=== PATIENT | female | born 1990 | race American Indian/Alaskan Native ===

== ENCOUNTER 2018-06-24 15:45 | Inpatient (IN) | payer OTHER, MEDICAID ==
[2018-06-24] MEDS ORDERED: Lactated Ringer's 1,000 ML IV SCH (16:45)
[2018-06-24 17:29] LABS: SQUAMOUS EPITHIAL 4 /hpf (0-5); URINE BACTERIA RARE (<OCC); URINE BILIRUBIN NEGATIVE (NEGATIVE); URINE BLOOD NEGATIVE (NEGATIVE); URINE CLARITY Clear (Clear); URINE COLOR Yellow (YELLOW); URINE GLUCOSE (UA) NORMAL (Normal); URINE LEUKOCYTE ESTERASE NEG Leu/uL (Negative); URINE PROTEIN NEGATIVE (NEGATIVE); URINE UROBILINOGEN NORMAL mg/dL (0.2-1.0)
[2018-06-24 17:34] LABS: BASO % 0.4 % (0.0-2.0); EOS # 0.4 K/uL (0.0-0.7); EOS % 4.5 % (0.0-4.0); LYMPH # 1.4 K/uL (1.0-4.3); LYMPH % 16.5 % (20.0-40.0); MEAN CELL VOLUME 89.6 fL (81.0-99.0); MEAN CORPUSCULAR HEMOGLOBIN 30.3 pg (27.0-31.0); MEAN CORPUSCULAR HGB CONC 33.8 g/dL (33.0-37.0); MEAN PLATELET VOLUME 8.9 fL (7.2-11.7); MONO # 0.8 K/uL (0.0-0.8); MONO % 10.2 % (0.0-10.0); NEUT # 5.7 K/uL (1.8-7.0); NEUT % 68.4 % (50.0-75.0); NRBC % 0.1 % (0.0-2.0); RBC 3.62 Mil/uL (3.80-5.20); RED CELL DISTRIBUTION WIDTH 14.9 % (11.5-14.5); WHITE BLOOD COUNT 8.3 K/uL (4.8-10.8)
[2018-06-24] MEDS ORDERED: DiphenhydrAMINE 50 mg/ml Inj IVP ONE (18:00)
[2018-06-24] MEDS ORDERED: Oxytocin 30 UNIT 30 UNITS/500 ML BAG IV SCH (18:00)
[2018-06-24] MEDS ORDERED: Nalbuphine HCL 10 mg/ml Ampule IVP ONE (18:00)
[2018-06-24 18:01] LABS: ALBUMIN 3.3 g/dL (3.5-5.0); ALT/SGPT 21 U/L (9-52); AST/SGOT 28 U/L (14-36); BLOOD UREA NITROGEN 8 mg/dL (7-17); CALCIUM 9.5 mg/dl (8.6-10.4); GFR NON-AFRICAN AMERICAN > 60
[2018-06-24 18:29] LABS: HEPATITIS B SURFACE AG Negative (NEGATIVE)
[2018-06-24] MEDS ORDERED: Oxytocin 30 UNIT 30 UNITS/500 ML BAG IV ONE (19:12)
[2018-06-24] MEDS ORDERED: Benzocaine/Menthol 20%-0.5% Topical Spray (60 ml) TOP PRN (19:46)
--- NOTE | 2018-06-24 21:34 | OBHP ---
Datetime: 06/24/2018 17:01 IP Adm Impression: Term, intrauterine IP Admit Plan: Admit to unit Admit Comment, IP Provider: Patient is a 28 year old , LMP (10/03/17), with JUNI (06/27/18) by [facility], who presents to [facility] with complaints of contractions that started at 7am this morning with contrac tions being 15 minutes apart, and 3-4 minutes this afternoon. Patient denies any vaginal bleeding, l eakage of fluid and recent sexual activity. 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 1. Admit to unit 2. CEFM and TOCO 3. Admission labs and orders 4. SVE 5. LR @ 125mls/hr 6. records reviewed 7. Nubain/ Benadryl given as per Dr. Grady orders 8. All plans discussed with Dr. Grady agree wth avoe pt seen and exaiend admitted for labr pain managment cnt toco and efm Extremities - PN: Normal Abdomen - PN: Normal Lungs - PN: Normal Heart - PN: Normal HEENT - PN: Normal General - PN: Normal FHR - Baseline A Provider: 140 Membranes, Provider: Intact EGA AdmitDate IP: 37.5 Vital Signs Provider: Reviewed; Within Normal Limits IP Chief Complaint: Uterine contractions NICHD Variability Prov Fetus A: Moderate 6-25bpm NICHD Accel Fetus A IP Provider: [id number] (Annotations: Data stored by CPN on behalf of user) Dilatation, Provider: 4 Effacement, Provider: 80 Station, Provider: -2
[2018-06-24] MEDS: Oxycodone/Acetaminophen 5/325 mg Tab PO PRN (23:09)
[2018-06-25] MEDS: Oxycodone/Acetaminophen 5/325 mg Tab PO PRN ×3 (08:15→17:04)
[2018-06-25 08:32] LABS: BASO # 0.1 K/uL (0.0-0.2); BASO % 0.6 % (0.0-2.0); EOS # 0.4 K/uL (0.0-0.7); EOS % 4.4 % (0.0-4.0); HEMOGLOBIN 11.1 g/dL (11.0-16.0); LYMPH # 1.8 K/uL (1.0-4.3); LYMPH % 18.6 % (20.0-40.0); MEAN CELL VOLUME 89.9 fL (81.0-99.0); MEAN CORPUSCULAR HEMOGLOBIN 29.6 pg (27.0-31.0); MEAN PLATELET VOLUME 8.6 fL (7.2-11.7); MONO # 0.8 K/uL (0.0-0.8); MONO % 8.4 % (0.0-10.0); NEUT # 6.5 K/uL (1.8-7.0); NRBC % 0.1 % (0.0-2.0); RBC 3.76 Mil/uL (3.80-5.20); RED CELL DISTRIBUTION WIDTH 14.8 % (11.5-14.5); WHITE BLOOD COUNT 9.5 K/uL (4.8-10.8)
[2018-06-26] MEDS: Oxycodone/Acetaminophen 5/325 mg Tab PO PRN (02:38)
--- NOTE | 2018-06-26 14:44 | OBDS ---
DELIVERY PERSONNEL Nurse Upper Trimmer Certified: N/A Delivery Doctor: Vasyl Grady MD Scrub Nurse: N/Colt Chemical Engineering Technician: Roma Guaman RN Anesthesiologist: N/Colt Silk Examiner: N/Colt Resident: Dr. Shira Sebastian, PGY - 2 MATERNAL INFORMATION Delivery Anesthesia: None Medications in Delivery: None Estimated Blood Loss (ml): 300 Placenta Cultured: No Maternal Complications: None LABOR SUMMARY EDC: 07/10/2018 00:00 No. Babies in Womb: 1 Attempted: No Labor Anesthesia: None LABOR INFORMATION Reason for Induction: Not Applicable Reason for Induction Other: N/A Onset of Labor: 06/24/2018 07:00 Complete Dilatation: 06/24/2018 19:25 Other Ripening Agents: N/A Oxytocin: Augmentation Group B Beta Strep: Negative Antibiotics # of Doses: N/A Antibiotics Time of Last Dose: N/A Steroids Given: None Reason Steroids Not Administered: Not Applicable Other Reason Not Administered: N/A MEMBRANES Membranes Rupture Method: Artificial Rupture of Membranes: 06/24/2018 18:01 Length of Rupture (hrs): 1.52 Amniotic Fluid Color: Clear Amniotic Fluid Amount: Small Amniotic Fluid Odor: Normal STAGES OF LABOR Stage 1 hrs: 12 Stage 1 min: 25 Stage 2 hrs: 0 Stage 2 min: 7 Stage 3 hrs: 0 Stage 3 min: 7 Total Time in Labor hrs: 12 Total Time in Labor min: 39 VAGINAL DELIVERY Episiotomy: None Laceration Extension: N/A Laceration Type: None Other Laceration: N/A Laceration Repair: Not Applicable Initial Vag Sponge Count: 11 Final Vag Sponge Count: 11 Initial Vag Sharps Count: 0 Final Vag Sharps Count: 0 Sponge Count Correct: No Sharps Count Correct: N/A Count Comment: Count done with Bhumi Velásquez RN. BABY A INFORMATION Infant Delivery Date/Time: 06/24/2018 19:32 Method of Delivery: Vaginal Born in Route : No : N/A Forceps: N/A Vacuum Extraction: N/A Shoulder Dystocia : No SHOULDER DYSTOCIA BABY A Infant Delivery Date/Time: 06/24/2018 19:32 PRESENTATION/POSITION BABY A Presentation: Cephalic Cephalic Presentation: Vertex Vertex Position: Left Occipital Anterior Breech Presentation: N/A PLACENTA INFORMATION BABY A Placenta Delivery Time : 06/24/2018 19:39 Placenta Method of Delivery: Spontaneous Placenta Status: Delivered SCORES BABY A Heart Rate 1 min: >100 bpm Resp Effort 1 min: Slow, Irregular Reflex Irritability 1 min: Cough or Sneeze or Pulls Away Muscle Tone 1 min: Active Motion Color 1 min: Body [place], Extremities Blue Resuscitation Effort 1 min: Tactile Stimulation; Oxygen; PPV/NCPAP SCORE 1 MIN: 8 Heart Rate 5 min: >100 bpm Resp Effort 5 min: Good Cry Reflex Irritability 5 min: Cough or Sneeze or Pulls Away Muscle Tone 5 min: Active Motion Color 5 min: Body [place], Extremities Blue SCORE 5 MIN: 9 INFANT INFORMATION BABY A Gestational Age at Delivery: 37.5 Gestational Status: Term Infant Outcome : Liveborn Condition : Stable Infant Sex: Female IDENTIFICATION/MEDS BABY A ID Band Number: [id number] ID Band Location: Left Leg; Left Arm Sensor Applied: Yes Sensor Number: [id number] Sensor Location : Cord Clamp WEIGHT/LENGTH BABY A Infant Birthweight (gms): 3130 Infant Weight (lb): 6 Weight (oz): 14 Length Inches: 19.50 Length cms: 49.5 CORD INFORMATION BABY A No. 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 Fontanez Transferred To: Remains with Mother
--- NOTE | 2018-06-26 14:47 | OBPPN ---
Datetime: 06/26/2018 14:45 PP Pain Prov: Within normal limits PP Breasts Prov: Normal PP Heart Prov: Normal PP Lungs Prov: Normal PP Abdomen/Uterus Prov: Normal PP Lochia Prov: Normal PP Vulva/Perineum Prov: Normal PP CVA Tenderness Prov: Normal PP Extremities Prov: Normal PP C/S Incision Prov: Normal PP Progress Prov: Normal PP Impression Prov: Normal progression PP Progress Note Prov: PPD #2 No C/O VS Stable Abdomen Soft P: Home today IP PP Procedures: None Datetime: 06/25/2018 14:42 PP Plan Prov: Continue present management
--- NOTE | 2018-06-26 14:51 | OBDCSUM ---
Datetime: 06/26/2018 14:47 Discharged to, Provider: Home Follow up at, Provider: Dr. Grady Disch Instr Activity: Normal activity Disch Instr Diet: Regular Discharge Instructions, Provider: Routine instructions given Discharge Diagnosis, Provider: Term Delivered Discharge Time: 06/26/2018 14:47 Follow up in weeks, Provider: 4 weeks Disch Referrals: None Contraception discussed, Prov: Yes
[2018-06-26] MEDS ORDERED: Influenza Vaccine 60 MCG/0.5 ML SYR (3 yr & up) IM ONE (15:31)
[2018-06-26 22:49] VITALS: BP 114/77; PULSE 83; RESP 18; TEMP 98; O2SAT 99
== END 2018-06-26 16:30 | disposition home or self-care (01) | DRG 807 ==
LOC: C.EROB 15:45 → C.4D 16:51 → C.4M 22:10
PROVIDERS: ADMIT Obstetrics & Gynecology Gynecology; ATTEND Obstetrics & Gynecology Gynecology
PROC: 10E0XZZ Delivery of Products of Conception, External Approach (ICD-10-PCS; principal; 2018-06-24)
DX: O99.52 Diseases of the respiratory system complicating childbirth (principal); Z37.0 Single live birth; J45.909 Unspecified asthma, uncomplicated; O69.1XX0 Labor and delivery complicated by cord around neck, with compression, not applicable or unspecified; Z3A.37 37 weeks gestation of pregnancy